=== PATIENT | female | born 1955 | race Caucasian/White ===

== ENCOUNTER → 2017-05-29 | Outpatient (CLI) | payer OTHER ==
[~2017-05-29] MED LIST: BENZONATATE200 MG PO; CEPHALEXIN 500500 M3 PO; IBUPROFEN 800800 M1 PO; NEURONTIN250 MG/5 M PER TUBE; PAXIL10 MG PO; PREDNISONE 10 M10 M1 PO; PRILOSEC20 MG PO; PROMETHAZINE HC25 M1 PO; SINGULAIR 10 MG10 M1 PO; SPIRIVA INH; SYMBICORT80 MCG/4.1 INH; ZPAK PO
== END ==
LOC: M.RAD 09:24
DX: J18.9 Pneumonia, unspecified organism (principal)

== ENCOUNTER → 2017-07-25 | Outpatient (CLI) | payer OTHER | LOC: M.RAD 10:51 | DX: J44.0 Chronic obstructive pulmonary disease with (acute) lower respiratory infection (principal); J18.9 Pneumonia, unspecified organism; Z87.01 Personal history of pneumonia (recurrent); Z87.891 Personal history of nicotine dependence ==

== ENCOUNTER 2017-07-26 10:52 | Emergency (ER) | payer OTHER ==
[~2017-07-26] VITALS: Ht 160 cm; Wt 77.6 kg
[~2017-07-26 10:52] MED LIST changes: -BENZONATATE200 MG PO; -PAXIL10 MG PO; -PREDNISONE 10 M10 M1 PO; -PROMETHAZINE HC25 M1 PO
[2017-07-26] MEDS ORDERED: PAXIL10 MG PO (11:10)
[2017-07-26 11:45] LABS: ABSOLUTE LYMPHOCYTES 1.1 thou/uL (0.8-5.3); ABSOLUTE MONOCYTES 0.8 thou/uL (0.0-1.2); ABSOLUTE NEUTROPHILS 7.1 thou/uL (1.6-8.1); BASOPHILS 0.5 %; EOSINOPHILS 0.3 %; HEMOGLOBIN 14.5 gm/dL (12.0-15.0); LYMPHOCYTES 11.8 %; MCH 28.4 pg (26.0-34.0); MCHC 32.8 g/dL (28.0-37.0); MCV 86.4 fL (80.0-100.0); MPV 9.7 fl. (7.2-11.1); NUCLEATED RBCS 0 /100WBC; PLATELET COUNT* 200 thou/uL (150-400); POLYS 78.4 %; RDW-CV 14.2 % (10.5-14.5)
[2017-07-26 11:52] LABS: CREATININE 0.9 mg/dL (0.6-1.3); POTASSIUM 3.8 mmol/L (3.5-5.1)
[2017-07-26 12:02] LABS: ALBUMIN 3.3 g/dL (3.4-5.0); TOTAL BILIRUBIN 0.2 mg/dL (<0.1-1.0); TOTAL PROTEIN 8.3 g/dL (6.4-8.2)
[2017-07-26] MEDS ORDERED: PROMETHAZINE HC25 M1 PO (12:43)
[2017-07-26] MEDS ORDERED: BENZONATATE200 MG PO (12:45)
[2017-07-26] MEDS ORDERED: PREDNISONE 10 M10 M1 PO (12:45)
[2017-07-26 13:09] VITALS: BP 112/65
== END 2017-07-26 13:11 | disposition still patient (30) ==
LOC: M.ERS 10:52
PROVIDERS: Nurse Practitioner
DX: J11.1 Influenza due to unidentified influenza virus with other respiratory manifestations (principal); J45.909 Unspecified asthma, uncomplicated; Z90.710 Acquired absence of both cervix and uterus; Z88.5 Allergy status to narcotic agent

== ENCOUNTER → 2017-09-08 | Outpatient (CLI) | payer OTHER ==
[~2017-09-08] MED LIST changes: +BENZONATATE200 MG PO; +PAXIL10 MG PO; +PREDNISONE 10 M10 M1 PO; +PROMETHAZINE HC25 M1 PO
== END ==
LOC: M.RAD 09:47
DX: Z12.31 Encounter for screening mammogram for malignant neoplasm of breast (principal)

== ENCOUNTER → 2018-04-04 | Outpatient (CLI) | payer OTHER | LOC: M.RAD 11:05 | DX: J84.9 Interstitial pulmonary disease, unspecified (principal) ==

== ENCOUNTER 2018-07-06 12:24 | Emergency (ER) | payer OTHER ==
[~2018-07-06] VITALS: Ht 157.5 cm; Wt 77.1 kg
[2018-07-06] MEDS ORDERED: NORCO 5-325 TA1 EAC1 PO (14:11)
[2018-07-06 14:20] VITALS: BP 147/78
== END 2018-07-06 14:21 | disposition home or self-care (01) ==
LOC: M.ERS 12:24
DX: S02.2XXA Fracture of nasal bones, initial encounter for closed fracture (principal); S80.02XA Contusion of left knee, initial encounter; J44.9 Chronic obstructive pulmonary disease, unspecified; Z88.5 Allergy status to narcotic agent; Z90.710 Acquired absence of both cervix and uterus; W01.198A Fall on same level from slipping, tripping and stumbling with subsequent striking against other object, initial encounter; Y92.89 Other specified places as the place of occurrence of the external cause; Y93.01 Activity, walking, marching and hiking; Y99.8 Other external cause status

== ENCOUNTER → 2018-09-07 | Outpatient (CLI) | payer OTHER ==
[~2018-09-07] MED LIST changes: +NORCO 5-325 TA1 EAC1 PO
== END ==
LOC: M.RAD 08:52
DX: Z12.31 Encounter for screening mammogram for malignant neoplasm of breast (principal)

== ENCOUNTER 2020-04-21 10:33 | Emergency (ER) | payer OTHER ==
[~2020-04-21] VITALS: Ht 160 cm; Wt 78.5 kg
[2020-04-21] MEDS ORDERED: ZOFRAN ODT4 MG PO (11:43)
[2020-04-21] MEDS ORDERED: VENTOLIN HFA 1818 GM INH (11:43)
[2020-04-21] MEDS ORDERED: MEDROLDOSEPACK PO (11:43)
[2020-04-21] MEDS ORDERED: ZPAK PO (11:43)
[2020-04-21 13:12] VITALS: BP 169/93
== END 2020-04-21 13:13 | disposition home or self-care (01) ==
LOC: M.ERS 10:33
DX: U07.1 COVID-19 (principal); J44.9 Chronic obstructive pulmonary disease, unspecified; Z90.710 Acquired absence of both cervix and uterus; Z98.890 Other specified postprocedural states; Z79.899 Other long term (current) drug therapy